=== PATIENT | female | born 1970 | race Hispanic/Latino ===

== ENCOUNTER 2019-12-16 09:50 | Emergency (ER) | payer SELFPAY ==
[2019-12-16 10:15] VITALS: BP 99/61
[2019-12-16] MEDS ORDERED: traMADol 50 MG TAB PO ONE (13:41)
--- NOTE | 2019-12-16 13:43 | Emergency Department Report ---
ED Fall HPI - General Chief Complaint: Fall Stated Complaint: FELL/BACK PAIN Time Seen by Provider: 12/16/19 12:53 Source: patient Mode of arrival: Ambulatory Limitations: No Limitations - History of Present Illness Initial Comments: This is a 49-year-old female who presents to the emergency room with posterior neck and low back pain from a fall. Patient states she had a ground- level fall yesterday afternoon. Patient states she originally felt fine until the day progressed and woke up this morning with worsening posterior neck pain and low back pain with movement. Patient states she has worsening stiffness. Pain is aggravated by movement. She denies urinary or bowel pattern, numbness or tingling, radiating pain, swelling, or bruising. MD Complaint: fall -: Last night Fall From: standing When Fall Occurred: 24 hours [employer] Fall Witnessed: yes, by family Place Fall Occurred: home Loss of Consciousness: none Prolonged Down Time?: no Symptoms Prior to Fall: none Location: neck, back Severity: moderate Severity scale (0 -10): 7 Quality: aching Context: tripped/slipped Associated Symptoms: denies - Related Data Previous Rx's Medication Instructions Recorded Last Taken Type Mv-Mn/Iron/FA/Herbal/Digestive 1 each PO QDAY #30 tablet 10/01/13 Unknown Rx [ One Tablet] Ibuprofen [Motrin 800 MG tab] 800 mg PO Q8HR PRN #20 tablet 12/16/19 Unknown Rx Methocarbamol [Robaxin] 500 mg PO BID PRN #15 tablet 12/16/19 Unknown Rx Allergies Allergy/AdvReac Type Severity Reaction Status Date / Time No Known Allergies Allergy Unverified 09/30/13 15:29 ED Review of Systems ROS: Stated complaint: FELL/BACK PAIN Other details as noted in HPI Constitutional: denies: chills, fever Respiratory: denies: cough, shortness of breath, wheezing Cardiovascular: denies: chest pain, palpitations Gastrointestinal: denies: abdominal pain, nausea, diarrhea Musculoskeletal: back pain, arthralgia (Posterior neck pain). denies: joint swelling Skin: denies: rash, lesions Neurological: denies: headache, weakness, paresthesias Psychiatric: denies: anxiety, depression ED Past Medical Hx - Past Medical History Previous Medical History?: No Additional medical history: hypothyroid - Surgical History Past Surgical History?: No Additional Surgical History: Thyroid nodule removed. - Social History Smoking Status: Never Smoker Substance Use Type: None - Medications Home Medications: Home Medications Medication Instructions Recorded Confirmed Last Taken Type Mv-Mn/Iron/FA/Herbal/Digestive 1 each PO QDAY #30 tablet 10/01/13 Unknown Rx [ One Tablet] Ibuprofen [Motrin 800 MG tab] 800 mg PO Q8HR PRN #20 tablet 12/16/19 Unknown Rx Methocarbamol [Robaxin] 500 mg PO BID PRN #15 tablet 12/16/19 Unknown Rx ED Physical Exam - General Limitations: No Limitations General appearance: alert, in no apparent distress - Neck Neck exam: Present: tenderness (Bilateral trapezius tenderness, no midline tenderness, no step-off or deformity), full ROM. Absent: meningismus, lymphadenopathy, thyromegaly - Respiratory Respiratory exam: Present: normal lung sounds bilaterally. Absent: respiratory distress - Cardiovascular Cardiovascular Exam: Present: regular rate, normal rhythm. Absent: systolic murmur, diastolic murmur, rubs, gallop - GI/Abdominal GI/Abdominal exam: Present: soft, normal bowel sounds. Absent: distended, tenderness, guarding, rebound, rigid - Extremities Exam Extremities exam: Present: normal inspection - Back Exam Back exam: Present: full ROM, paraspinal tenderness (Bilateral L-spine TTP, no midline tenderness, no deformity or step-off). Absent: muscle spasm, vertebral tenderness, rash noted - Neurological Exam Neurological exam: Present: alert, oriented X3, normal gait - Psychiatric Psychiatric exam: Present: normal affect, normal mood - Skin Skin exam: Present: warm, dry, intact, normal color. Absent: rash ED Course Vital Signs 12/16/19 10:12 Temperature 98.1 F Pulse Rate 96 H Respiratory 20 Rate Blood Pressure 99/61 O2 Sat by Pulse 99 Oximetry ED Medical Decision Making - Medical Decision Making This Critical care attestation.: If time is entered above; I have spent that time in minutes in the direct care of this critically ill patient, excluding procedure time. ED Disposition Clinical Impression: Neck pain, Muscle strain Low back pain Qualifiers: Chronicity: acute Back pain laterality: bilateral Sciatica presence: without sciatica Qualified Code(s): M54.5 - Low back pain Disposition: - TO HOME OR SELFCARE Is pt being admited?: No Condition: Stable Instructions: Cervical Spine Strain (ED), Low Back Strain (ED) Additional Instructions: Rest Use ice or heat on affected area for 20 minutes and off for 2 hours. Take pain medication as needed for pain. Don't drive or operate heavy machinery while taking muscle relaxers because they may cause drowsiness. Follow up with Primary Care Provider in 2-3 days. Prescriptions: Ibuprofen [Motrin 800 MG tab] 800 mg PO Q8HR PRN #20 tablet PRN Reason: Pain , Severe (7-10) Methocarbamol [Robaxin] 500 mg PO BID PRN #15 tablet PRN Reason: Muscle Spasm Referrals: [facility] [Outside] - 3-5 Days [facility] [Outside] - 3-5 Days [facility] [Outside] - 3-5 Days Forms: Work/School Release Form(ED) Time of Disposition: 13:55
== END 2019-12-16 14:07 | disposition home or self-care (01) ==
LOC: ED 09:50
DX: S16.1XXA Strain of muscle, fascia and tendon at neck level, initial encounter (principal); M54.5 Low back pain; Z79.1 Long term (current) use of non-steroidal anti-inflammatories (NSAID); Z79.899 Other long term (current) drug therapy; W18.39XA Other fall on same level, initial encounter; Y93.89 Activity, other specified; Y92.009 Unspecified place in unspecified non-institutional (private) residence as the place of occurrence of the external cause; Y99.8 Other external cause status
CPT/HCPCS: 99282

== ENCOUNTER 2020-06-15 18:15 | Emergency (ER) | payer SELFPAY ==
--- NOTE | 2020-06-15 18:17 | Emergency Department Report ---
Blank Doc - Documentation Documentation: 50-year-old female that presents with lower back pains s/p fall. This initial assessment/diagnostic orders/clinical plan/treatment(s) is/are subject to change based on patient's health status, clinical progression and re- assessment by fellow clinical providers in the ED. Further treatment and workup at subsequent clinical providers discretion. Patient/guardians urged not to elope from the ED as their condition may be serious if not clinically assessed and managed. Initial orders include: 1- Patient sent to [facility] for further evaluation and treatment 2- xrays
[2020-06-15 18:20] VITALS: BP 106/67
--- NOTE | 2020-06-15 20:21 | XRay Report ---
LUMBAR SPINE 2 VIEWS INDICATION: pain s/p fall COMPARISON: None. FINDINGS: There is no fracture, subluxation, or other acute radiographic abnormality of the lumbar spine. Signer Name: Raul Harris MD Signed: 06/15/2020 8:17 PM Workstation Name: [id number]
--- NOTE | 2020-06-15 20:23 | Emergency Department Report ---
ED Back Pain/Injury HPI - General Chief Complaint: Back Pain/Injury Stated Complaint: SLIP AND FELL Time Seen by Provider: 06/15/20 18:16 Source: patient Limitations: No Limitations - History of Present Illness Initial Comments: 50-year-old female presents to the emergency room stating she slipped and fell at [employer]. Patient is does not know what public she had injured herself at. Patient states that she was having back pain and knee pain. Patient reports that she had talked to vertical contour band saw operator Tony Newman's office and they told her to come to the emergency room. Patient reports she left the [employer] went home and then called EMS after she spoke to their vertical contour band saw operator to come and be evaluated. Patient states that she has a history of back pain and is currently in treatment with a chiropractor. Patient reports that her knees hurt from the end pack. Patient reports her last menstrual period was last month. She has no known drug allergies. She has been taking ibuprofen for back pain. -: This afternoon Similar Symptoms Previously: Yes Place: other ([employer] unknown location) Radiation: none Severity scale (0 -10): 7 Quality: aching Consistency: intermittent Improves With: none Worsens With: walking Associated Symptoms: denies other symptoms. denies: confusion, weakness, chest pain, cough, incontinence - Related Data Previous Rx's Medication Instructions Recorded Last Taken Type Mv-Mn/Iron/FA/Herbal/Digestive 1 each PO QDAY #30 tablet 10/01/13 Unknown Rx [ One Tablet] Ibuprofen [Motrin 800 MG tab] 800 mg PO Q8HR PRN #20 tablet 12/16/19 Unknown Rx Methocarbamol [Robaxin] 500 mg PO BID PRN #15 tablet 12/16/19 Unknown Rx Allergies Allergy/AdvReac Type Severity Reaction Status Date / Time No Known Allergies Allergy Unverified 09/30/13 15:29 ED Review of Systems ROS: Stated complaint: SLIP AND FELL Other details as noted in HPI Comment: All other systems reviewed and negative ED Past Medical Hx - Past Medical History Previous Medical History?: Yes Additional medical history: hypothyroidism. chronic back pain - Surgical History Additional Surgical History: Thyroid nodule removed. - Social History Smoking Status: Never Smoker Substance Use Type: None - Medications Home Medications: Home Medications Medication Instructions Recorded Confirmed Last Taken Type Mv-Mn/Iron/FA/Herbal/Digestive 1 each PO QDAY #30 tablet 10/01/13 Unknown Rx [ One Tablet] Ibuprofen [Motrin 800 MG tab] 800 mg PO Q8HR PRN #20 tablet 12/16/19 Unknown Rx Methocarbamol [Robaxin] 500 mg PO BID PRN #15 tablet 12/16/19 Unknown Rx ED Physical Exam - General Limitations: No Limitations General appearance: alert, in no apparent distress - Head Head exam: Present: atraumatic, normocephalic - Eye Eye exam: Present: normal appearance - ENT ENT exam: Present: mucous membranes moist - Neck Neck exam: Present: normal inspection - Expanded Lower Extremity Exam Left Hip exam: Present: normal inspection Upper Leg exam: Present: normal inspection Knee exam: Present: full ROM, tenderness. Absent: swelling Lower Leg exam: Present: normal inspection, full ROM. Absent: tenderness, swelling Ankle exam: Present: normal inspection Foot/Toe exam: Present: normal inspection Neuro vascular tendon exam: Present: no vascular compromise Right Hip exam: Present: normal inspection Upper Leg exam: Present: normal inspection, full ROM Knee exam: Present: full ROM. Absent: tenderness, swelling Lower Leg exam: Present: normal inspection, full ROM. Absent: tenderness Ankle exam: Present: normal inspection, full ROM. Absent: tenderness Neuro vascular tendon exam: Present: no vascular compromise - Back Exam Back exam: Present: full ROM, paraspinal tenderness - Neurological Exam Neurological exam: Present: alert, oriented X3 - Psychiatric Psychiatric exam: Present: normal affect, normal mood - Skin Skin exam: Present: warm, dry, intact, normal color. Absent: rash ED Course Vital Signs 06/15/20 18:20 Temperature 97.8 F Pulse Rate 81 Respiratory 16 Rate Blood Pressure 106/67 [Right] O2 Sat by Pulse 98 Oximetry ED Medical Decision Making - Medical Decision Making 50-year-old female presents to the emergency room stating she slipped and fell at [facility]. Patient is does not know what public she had injured herself at. Patient states that she was having back pain and knee pain. Patient reports that she had talked to vertical contour band saw operator Tony Newman's office and they told her to come to the emergency room. [facility] and then [facility] after she spoke to their vertical contour band saw operator to come and be evaluated. Patient states that she has a history of back pain and is currently in treatment with a chiropractor. Patient reports that her knees hurt from the end pack. Patient reports her last menstrual period was last month. She has no known drug allergies. She has been taking ibuprofen for back pain. X-ray of back shows no acute abnormalities. Patient has full range of motion of her lower extremities and upper extremities. Patient is ambulatory without difficulties. Patient has no swelling appreciated. Patient continue with her ibuprofen and to follow-up with her primary care doctor or her chiropractor. It was reported to me that patient eloped as she had to get to her ride. Critical care attestation.: If time is entered above; I have spent that time in minutes in the direct care of this critically ill patient, excluding procedure time. ED Disposition Clinical Impression: Fall from slipping Contusion, knee Qualifiers: Encounter type: initial encounter Laterality: left Qualified Code(s): S80.02XA - Contusion of left knee, initial encounter Disposition: Z-07 ELOPED Is pt being admited?: No Does the pt Need Aspirin: No Condition: Stable Additional Instructions: Instructed patient to take ibuprofen or Tylenol for pain management. She can follow-up with her primary care provider or her orthopedic/chiropractor provider.
== END 2020-06-15 22:20 | disposition left against medical advice (07) ==
LOC: ED 18:15
DX: S80.02XA Contusion of left knee, initial encounter (principal); E05.00 Thyrotoxicosis with diffuse goiter without thyrotoxic crisis or storm; Z79.899 Other long term (current) drug therapy; W01.0XXA Fall on same level from slipping, tripping and stumbling without subsequent striking against object, initial encounter; Y93.89 Activity, other specified; Y92.89 Other specified places as the place of occurrence of the external cause; Y99.8 Other external cause status
CPT/HCPCS: 72100; 99282